=== PATIENT | female | born 1980 | race Caucasian/White ===

== ENCOUNTER 2019-05-29 12:36 | Emergency (ER) | payer OTHER ==
--- NOTE | 2019-05-29 12:44 | ED Physician Documentation ---
History of Present Illness - Stated complaint Stated Complaint: THROAT PX - History obtained from History obtained from: Patient - History of Present Illness Timing: Yesterday (Sore throat since yesterday associated with fatigue sweats and a tactile fever. No runny nose or cough.) Review of Systems Constitutional: reports: Fever, Chills, Myalgias, Fatigue, Sweats Ears: denies: Ear pain, Drainage/discharge Nose: denies: Rhinorrhea / runny nose, Congestion PD PAST MEDICAL HISTORY - Past Medical History Past Medical History: Yes Endocrine/Autoimmune: Other (RA) - Allergies Allergies/Adverse Reactions: Allergies Allergy/AdvReac Type Severity Reaction Status Date / Time No Known Drug Allergies Allergy Verified 05/29/19 12:46 - Social History Does the pt drink ETOH?: No PD ED PE NORMAL - Vitals Vital signs reviewed: Yes - General General: Alert and oriented X 3, No acute distress - HEENT HEENT: Ears normal (Swollen red tonsils with very mild exudates and moderate anterior cervical adenopathy) - Neck Neck: Supple, no meningeal sign, No bony TTP - Derm Derm: No rash - Neuro Neuro: Alert and oriented X 3, Normal speech Results - Vitals Vitals: Vital Signs - 24 hr 05/29/19 12:44 Temperature 36.5 C Heart Rate 86 Respiratory 18 Rate Blood Pressure 128/75 O2 Saturation 98 Oxygen O2 Source Room air - Labs Labs: Laboratory Tests 05/29/19 12:43 Group A Strep Rapid POSITIVE H Departure - Departure Disposition: Home, Self Care Clinical Impression: Strep pharyngitis Condition: Good Record reviewed to determine appropriate education?: Yes Health Concerns: sore throat, feels ill Plan of Treatment: Pt req Bicillin LA injection, given Care Goals: improve Assessment: as above Instructions: ED Strep Pharyngitis Conf
[2019-05-29] MEDS ORDERED: PENICILLIN G BENZATHINE 600,000 UNIT/ML SYRINGE IM STA (12:59)
[2019-05-29 13:31] VITALS: BP 122/79
== END 2019-05-29 13:31 | disposition home or self-care (01) ==
LOC: ED 12:36
DX: J02.0 Streptococcal pharyngitis (principal)
CPT/HCPCS: 87430; 96372; 99282; 99283

== ENCOUNTER 2023-10-27 20:52 | Emergency (ER) | payer OTHER ==
[2023-10-27 21:29] VITALS: BP 135/88; O2SAT 100
[2023-10-27 21:35] LABS: BILIRUBIN,URINE NEGATIVE (NEGATIVE); GLUCOSE, URINE (UA) NEGATIVE (NEGATIVE); KETONES,URINE (UA) NEGATIVE (NEGATIVE); LEUKOCYTE ESTERASE, URINE MODERATE (NEGATIVE); NITRITE,URINE POSITIVE (NEGATIVE); OCCULT BLOOD,URINE LARGE (NEGATIVE); PH,URINE 6.5 PH (5.0-7.5); PROTEIN,URINE TRACE mg/dL (NEGATIVE); UROBILINOGEN,URINE 0.2 (NORMAL) E.U./dL (NORMAL)
[2023-10-27 21:36] LABS: CLARITY,URINE HAZY (CLEAR); HCG UR QUAL NEGATIVE
[2023-10-27 21:43] LABS: BACTERIA,URINE Rare /HPF (None Seen); SQUAMOUS EPITHELIAL CELL,UR RARE Squamous (<= Few); WBC,URINE >25 /HPF (0-5)
[2023-10-27] MEDS ORDERED: LIDOCAINE 1% 2 ML VIAL MC ONE (22:05)
[2023-10-27] MEDS ORDERED: cefTRIAXone 1 GM VIAL IM STA (22:05)
--- NOTE | 2023-10-27 22:08 | ED Physician Documentation ---
History of Present Illness - Stated complaint Stated Complaint: - Chief complaint Chief Complaint: UTI - History obtained from History obtained from: Patient - History of Present Illness Timing: Today Pain level max: 6 Pain level now: 5 - Additonal information Additional information: Patient is a 43-year-old female who presents to the emergency department dysuria and urinary frequency that started today. No abdominal pain. No back pain. Better with Azo. Worse with urination. Similar to prior UTIs. No fevers. No chills. Review of Systems Constitutional: denies: Fever, Chills : reports: Dysuria, Frequency Skin: denies: Rash Musculoskeletal: denies: Neck pain, Back pain Neurologic: denies: Headache PD PAST MEDICAL HISTORY - Past Medical History Past Medical History: No Endocrine/Autoimmune: Other - Past Surgical History Past Surgical History: Yes Ortho: Arthroscopic surgery - Present Medications Home Medications: Ambulatory Orders Medication Instructions Recorded Confirmed Phenazopyridine HCl [Pyridium] 200 mg PO TID PRN #6 tablet 10/27/23 cephALEXin [Keflex] 500 mg PO Q6H #20 cap 10/27/23 - Allergies Allergies/Adverse Reactions: Allergies Allergy/AdvReac Type Severity Reaction Status Date / Time No Known Drug Allergies Allergy Verified 10/27/23 21:06 - Social History Does the pt smoke?: No Smoking Status: Never smoker Does the pt drink ETOH?: Yes Does the pt have substance abuse?: No - Immunizations Immunizations are current?: No PD ED PE NORMAL - Vitals Vital signs reviewed: Yes - General General: Alert and oriented X 3, No acute distress - HEENT HEENT: Moist mucous membranes - Neck Neck: Supple, no meningeal sign - Cardiac Cardiac: RRR - Respiratory Respiratory: No respiratory distress, Clear bilaterally - Abdomen Abdomen: Soft, Non tender, Non distended - Back Back: No CVA TTP - Derm Derm: Warm and dry - Neuro Neuro: Alert and oriented X 3 - Psych Psych: Normal mood Results - Vitals Vitals: Vital Signs - 24 hr 10/27/23 21:01 Temperature 37.7 C Heart Rate 108 H Respiratory 16 Rate Blood Pressure 135/88 H O2 Saturation 100 Oxygen O2 Source Room air - Labs Labs: Laboratory Tests 10/27/23 21:24 Urine Color YELLOW Urine Clarity HAZY Urine pH 6.5 Ur Specific [place] <=1.005 Urine Protein TRACE Urine Glucose (UA) NEGATIVE Urine Ketones NEGATIVE Urine Occult Blood LARGE H Urine Nitrite POSITIVE H Urine Bilirubin NEGATIVE Urine Urobilinogen 0.2 (NORMAL) Ur Leukocyte Esterase MODERATE H Urine RBC 6-10 H Urine WBC >25 H Ur Squamous Epith Cells RARE Squamous Urine Bacteria Rare Ur Microscopic Review INDICATED Urine Culture Comments INDICATED Urine HCG, Qual NEGATIVE PD Medical Decision Making - ED course Complexity details: reviewed results, re-evaluated patient, considered differential, d/w patient ED course: Patient is well-appearing, nontoxic. Afebrile. No evidence of sepsis. No evidence of pyelonephritis. No CVA tenderness. Given a dose of Rocephin IM here. Will place on oral antibiotics for home. Appears to have cystitis. Patient counseled regarding signs and symptoms for which I believe and urgent re-evaluation would be necessary. Patient with good understanding of and agreement to plan and is comfortable going home at this time This document was made in part using voice recognition software. While efforts are made to proofread this document, sound alike and grammatical errors may occur. Departure - Departure Disposition: 01 Home, Self Care Clinical Impression: Urinary tract infection Qualifiers: Urinary tract infection type: acute cystitis Hematuria presence: without hematuria Qualified Code(s): N30.00 - Acute cystitis without hematuria Condition: Good Instructions: ED UTI Cystitis Female Follow-Up: MAGY BURDICK DO [Primary Care Provider] - As Needed Prescriptions: cephALEXin [Keflex] 500 mg PO Q6H #20 cap Phenazopyridine HCl [Pyridium] 200 mg PO TID PRN #6 tablet PRN Reason: dysuria Comments: Your prescriptions were sent to the [facility] in [place]. Please take all antibiotics until gone. Please return if you worsen. You can start your oral antibiotics tomorrow, the antibiotic given to you tonight will last for approximately 24 hours. Please return if you develop fevers, chills or other new or worrisome symptoms. Discharge Date/Time: 10/27/23 22:58
== END 2023-10-27 22:58 | disposition home or self-care (01) ==
LOC: ED 20:52
DX: N30.00 Acute cystitis without hematuria (principal)
CPT/HCPCS: 81001; 81003; 81025; 87086; 96372; 99283